=== PATIENT | male | born 1970 | race Caucasian/White ===

== ENCOUNTER 2017-03-25 23:28 | Inpatient (IN) ==
[2017-03-25] MEDS: *HR* HYDROmorphone (PF) 1 MG/ML SYRINGE IVP PRN ×3 (02:58→16:58)
[2017-03-25] MEDS: 0.9 % Sodium Chloride 1,000 ML IVC SCH ×2 (03:22→20:04)
[2017-03-25 06:06] LABS: Basophils % 0.2 %; Eosinophils # 0.1 K/mcL (0.0-0.6); Eosinophils % 0.6 %; Hematocrit 41.5 % (37.5-50.1); Hemoglobin 13.9 g/dL (12.9-16.9); Immature Granulocytes % 0.3 % (0-4); Mean Corpuscular HGB Conc 33.5 g/dL (31.6-35.5); Mean Corpuscular Hemoglobin 31.7 pg (28.0-33.3); Mean Corpuscular Volume 94.5 fL (83.0-100.0); Mean Platelet Volume 9.4 fL (9.4-12.4); Neutrophils # 11.2 K/mcL (1.6-8.9); Platelet Count 224 K/mcL (140-400); Red Blood Count 4.39 M/mcL (4.19-5.50); Red Cell Distribution Width 13.2 % (11.5-14.5); Segmented Neutrophils % 77.9 %
[2017-03-25 06:23] LABS: BUN/Creatinine Ratio 13 (6-26); Blood Urea Nitrogen 14 mg/dL (8-26); Calcium 8.5 mg/dL (8.6-10.8); Carbon Dioxide 25 mEq/L (19-29); Chloride 104 mEq/L (98-109); Glucose 101 mg/dL (70-99); Osmolality,Calculated 287 (280-300); Potassium 3.9 mEq/L (3.5-4.5); Sodium 138 mEq/L (136-145); eGFR For African Americans > 60 (> 60); eGFR For Non-African Americans > 60 (> 60)
--- NOTE | 2017-03-25 08:58 | General Surg History&Physical ---
<Florinda Hwang - Last Filed: 03/25/17 09:26> Date of Encounter: 03/25/17 Time of Encounter: 08:51 Assessment and Plan (1) Diverticulitis of large intestine with perforation Current Visit: Yes Status: Acute WBC 17.9 at [facility], 14.3 this morning. H/H 13.9, 41.5 ( decreased from 16.5/48.9 at [facility], will continue to monitor) CT of the abdomen and pelvis without contrast on 03/24/2017: Inflamed sigmoid colon consistent with acute diverticulitis. Small mesenteric gas collection consistent with microperforation. No abscess seen. Small bowel ileus. Patient was provided IVF, pain and nausea control. He was given Zosyn 4.5gm x1 at 2130 on 03/24/2017 Patient is passing gas, has positive bowel sounds. He does have involuntary guarding of the entire lower abdomen Plan: -Keep NPO today, will consider advancing diet to clear liquids tomorrow depending on abdominal exam -Continue IVF@ 75cc/hr -Continue zosyn q8hr -Serial abdominal exams, monitor VSS -Pain control -zofran for nausea -AM labs The assessment and plan as outlined above was discussed with the patient and/or family members who expressed understanding and agreement. All questions were answered. History of Present Illness Chief complaint: abdominal pain HPI: Mr. Johnson is a 46 year old male with no past medical or surgical history who was transferred to [facility] from [facility] with a diagnosis of diverticulitis with microperforation. The patient states that 2 nights ago he began to experience a "gut pain". He went to work yesterday, however the pain became worse throughout the day. He states that it was located in the right & left lower quadrants and was rated an 8/10. He states that it "feels like everything is in a knot and they are pulling on it. " Pain is worse with movement and relieved by lying down. It does not radiate anywhere. It is currently rated at a 5/10. He states that his last bowel movement was Friday, and was normal, however it was dark. The patient states that he did vomit yesterday. He also stated that he had a fever. He denies any history of diverticulosis or abdominal surgery. He denies any family history of a bleeding disorder, he states that his sister did have a DVT. He is a nonsmoker. He quit in 2008. He denies hematemesis, coffee-ground emesis, bloody stool, chills, chest pain, shortness of breath, headache, dizziness. Past Med Surg Social Fam HX - Past Medical History Medical history: no medical history Psychiatric history: no psych history - Past Surgical History Surgical History: no surgical history - Social History Smoking Status: Former smoker Smokeless Tobacco Status: Yes Alcohol use: rarely Drug use: none Occupational status: employed (sanitation truck driver) Current living situation: Home, With Family Activity Level: Independent ambulation Recent Out of Country Travel Within the Last 8 Weeks: No Exposure or Possible Exposure to Illness During Travel: No - Family History Father Age: 68 Race: Family Member Ethnicity: Non- Living Status: Still Living Hx Family Cancer: Yes (throat cancer) Hx Family Endocrine Disorder: Yes (DM) Mother Age: 63 Race: Family Member Ethnicity: Non- Living Status: Still Living Hx Family Endocrine Disorder: Yes (DM) Sister Race: Family Member Ethnicity: Non- Living Status: Still Living Hx Family Genitourinary Disorders: Yes (Kidney transplant) Hx Family Endocrine Disorder: Yes (DM) Hx Family Medical Disorders: Yes (DVT) Medications and Allergies Ranitidine HCl [Zantac 75] 75 mg PO DAILY PRN 03/25/17 [History] Allergies No Known Allergies Allergy (Verified 03/25/17 08:01) Review of Systems All systems PM: A 10-system review of systems was performed and is negative for pertinent findings except as documented above in the HPI. - EENT Nose, mouth and throat: no dizziness, no headache(s), no nasal congestion, no neck pain, no sore throat - Cardiovascular no chest pain, no diaphoresis - Respiratory no dyspnea - Gastrointestinal abdominal pain, melena, vomiting, no diarrhea, no hematemesis, no hematochezia, no loose stools, no nausea - Genitourinary no dysuria - Integumentary no unusual bruising - Neurological no dizziness, no headache(s) - Psychiatric no anxiety, no depression - Hematologic/Lymphatic no easy bleeding, no easy bruising General Surgery Exam Initial Vital Signs Temp Pulse Resp BP Pulse Ox 98.5 F 65 14 109/64 96 03/25/17 02:13 03/25/17 02:13 03/25/17 02:13 03/25/17 02:13 03/25/17 02:13 - General physical appearance well developed, well nourished, no distress, moderate pain - Eyes PERRL, normal ocular movement - ENT normal pinna, normal nares, normal mucosa, atraumatic, normocephalic - Neck no masses, trachea midline - Respiratory normal expansion, normal respiratory effort, clear to auscultation - Cardiovascular Cardiovascular exam: Present: RRR, no murmurs/rubs/gallops - Abdomen Abdomen general surgery: Present: bowel sounds present, soft, tender, guarding ( involuntary) Abdominal Tenderness: Present: RLQ, LLQ - Integumentary Integumentary general surgery: Present: warm and dry, no abnormal pigmentation - Neurologic Present: CN 2-12 grossly intact, normal coordination, normal sensation - Psychiatric Psychiatric general surgery: Present: appropriate, oriented to person, oriented to place, oriented to time, speech is normal, memory intact Results - Labs 03/25/17 05:16 03/25/17 05:16 Abnormal lab results WBC 14.3 K/mcL (4.3-11.1) H 03/25/17 05:16 Neutrophils # 11.2 K/mcL (1.6-8.9) H 03/25/17 05:16 Glucose 101 mg/dL (70-99) H 03/25/17 05:16 POC Glucose 101 (58-89) H 03/25/17 06:03 Calcium 8.5 mg/dL (8.6-10.8) L 03/25/17 05:16 Diabetes panel 03/25/17 Range/Units 05:16 Sodium 138 (136-145) mEq/L Potassium 3.9 (3.5-4.5) mEq/L Chloride 104 (98-109) mEq/L Carbon Dioxide 25 (19-29) mEq/L BUN 14 (8-26) mg/dL Creatinine 1.05 (0.72-1.25) mg/dL Glucose 101 H (70-99) mg/dL Calcium 8.5 L (8.6-10.8) mg/dL Calcium panel 03/25/17 Range/Units 05:16 Calcium 8.5 L (8.6-10.8) mg/dL Pituitary panel 03/25/17 Range/Units 05:16 Sodium 138 (136-145) mEq/L Potassium 3.9 (3.5-4.5) mEq/L Chloride 104 (98-109) mEq/L Carbon Dioxide 25 (19-29) mEq/L BUN 14 (8-26) mg/dL Creatinine 1.05 (0.72-1.25) mg/dL Glucose 101 H (70-99) mg/dL Calcium 8.5 L (8.6-10.8) mg/dL Adrenal panel 03/25/17 Range/Units 05:16 Sodium 138 (136-145) mEq/L Potassium 3.9 (3.5-4.5) mEq/L Chloride 104 (98-109) mEq/L Carbon Dioxide 25 (19-29) mEq/L BUN 14 (8-26) mg/dL Creatinine 1.05 (0.72-1.25) mg/dL Glucose 101 H (70-99) mg/dL Calcium 8.5 L (8.6-10.8) mg/dL All other labs normal. <Kishan Silveira - Last Filed: 03/25/17 12:18> Date of Encounter: 03/25/17 History of Present Illness HPI: Mr. Johnson is a 46 year old male Review of Systems All systems PM: A 10-system review of systems was performed and is negative for pertinent findings except as documented above in the HPI. General Surgery Exam Initial Vital Signs Temp Pulse Resp BP Pulse Ox 98.5 F 65 14 109/64 96 03/25/17 02:13 03/25/17 02:13 03/25/17 02:13 03/25/17 02:13 03/25/17 02:13 Results - Labs 03/25/17 05:16 03/25/17 05:16 Abnormal lab results WBC 14.3 K/mcL (4.3-11.1) H 03/25/17 05:16 Neutrophils # 11.2 K/mcL (1.6-8.9) H 03/25/17 05:16 Glucose 101 mg/dL (70-99) H 03/25/17 05:16 POC Glucose 98 (58-89) H 03/25/17 11:13 Calcium 8.5 mg/dL (8.6-10.8) L 03/25/17 05:16 Diabetes panel 03/25/17 Range/Units 05:16 Sodium 138 (136-145) mEq/L Potassium 3.9 (3.5-4.5) mEq/L Chloride 104 (98-109) mEq/L Carbon Dioxide 25 (19-29) mEq/L BUN 14 (8-26) mg/dL Creatinine 1.05 (0.72-1.25) mg/dL Glucose 101 H (70-99) mg/dL Calcium 8.5 L (8.6-10.8) mg/dL Calcium panel 03/25/17 Range/Units 05:16 Calcium 8.5 L (8.6-10.8) mg/dL Pituitary panel 03/25/17 Range/Units 05:16 Sodium 138 (136-145) mEq/L Potassium 3.9 (3.5-4.5) mEq/L Chloride 104 (98-109) mEq/L Carbon Dioxide 25 (19-29) mEq/L BUN 14 (8-26) mg/dL Creatinine 1.05 (0.72-1.25) mg/dL Glucose 101 H (70-99) mg/dL Calcium 8.5 L (8.6-10.8) mg/dL Adrenal panel 03/25/17 Range/Units 05:16 Sodium 138 (136-145) mEq/L Potassium 3.9 (3.5-4.5) mEq/L Chloride 104 (98-109) mEq/L Carbon Dioxide 25 (19-29) mEq/L BUN 14 (8-26) mg/dL Creatinine 1.05 (0.72-1.25) mg/dL Glucose 101 H (70-99) mg/dL Calcium 8.5 L (8.6-10.8) mg/dL All other labs normal. - Attending Attestation I examined this patient and my medical decision-making was reviewed with the MANAGER SUPPORT SERVICES/PA/Advanced Practice Nurse/Resident Physician. I agree with the documented findings, disposition and treatment plan as described except to the extent set forth below. The patient seen and evaluated on morning rounds. His physical examination demonstrates involuntary guarding. He has persistent leukocytosis. He antibiotic treatment of his perforated diverticulitis without abscess. Kishan Silveira MD FACS
[2017-03-25] MEDS: Piperacillin/Tazobactam 3.375 GM in D5% in Water (Mini-Bag+) 100 ML IVPB SCH ×2 (09:23→16:55)
[2017-03-25] MEDS: Pantoprazole 40 MG VIAL IVP SCH (09:37)
[~2017-03-25 23:28] MED LIST: Naloxone 0.4 MG/ML INJ IVP PRN; Ondansetron 4 MG/2 ML VIAL IVP PRN
[2017-03-26] MEDS: Piperacillin/Tazobactam 3.375 GM in D5% in Water (Mini-Bag+) 100 ML IVPB SCH ×4 (00:14→23:15)
[2017-03-26 05:57] LABS: Basophils % 0.3 %; Eosinophils # 0.1 K/mcL (0.0-0.6); Eosinophils % 1.2 %; Hematocrit 40.7 % (37.5-50.1); Hemoglobin 13.5 g/dL (12.9-16.9); Immature Granulocytes % 0.3 % (0-4); Lymphocytes # 2.1 K/mcL (0.6-4.6); Lymphocytes % 19.8 %; Mean Corpuscular HGB Conc 33.2 g/dL (31.6-35.5); Mean Corpuscular Hemoglobin 31.9 pg (28.0-33.3); Mean Corpuscular Volume 96.2 fL (83.0-100.0); Mean Platelet Volume 9.7 fL (9.4-12.4); Monocytes # 0.8 K/mcL (0.0-1.3); Monocytes % 7.1 %; Neutrophils # 7.6 K/mcL (1.6-8.9); Platelet Count 230 K/mcL (140-400); Red Blood Count 4.23 M/mcL (4.19-5.50); Red Cell Distribution Width 12.8 % (11.5-14.5); Segmented Neutrophils % 71.3 %
[2017-03-26 06:16] LABS: BUN/Creatinine Ratio 15 (6-26); Blood Urea Nitrogen 16 mg/dL (8-26); Calcium 8.5 mg/dL (8.6-10.8); Carbon Dioxide 27 mEq/L (19-29); Chloride 103 mEq/L (98-109); Glucose 82 mg/dL (70-99); Osmolality,Calculated 284 (280-300); Potassium 4.2 mEq/L (3.5-4.5); Sodium 137 mEq/L (136-145); eGFR For African Americans > 60 (> 60); eGFR For Non-African Americans > 60 (> 60)
--- NOTE | 2017-03-26 08:43 | General Surgery Progress Note ---
Date of Encounter: 03/26/17 Time of Encounter: 08:42 - Assessment and Plan (1) Diverticulitis of large intestine with perforation Current Visit: Yes Status: Acute WBC 10.7 CBC, BMP WNL VSS Bowel sounds present, abdomen soft and less tender, less distended compared to yesterday Patient had a BM this morning that he states was black, no blood noted We will advance the patient's diet to clear liquids and continue IV antibiotics today. If he is tolerating clear liquids today we can switch him to by mouth antibiotics tomorrow and consider discharge. Plan: -Advance diet to clear liquids -Continue IV antibiotics today, if tolerating clears will switch to PO antibiotics tomorrow Subjective Patient reports: feels better, pain is less, bowel movement, afebrile Narrative: The patient was seen and examined. He states that he is feeling better today. He was able to have a bowel movement today that he states was black, not bloody. Objective Vital Signs - Last 8 Hours Temp Pulse Resp BP Pulse Ox 03/26/17 07:25 98.6 F 66 16 120/71 95 03/26/17 03:53 98.5 F 76 15 124/80 96 Intake and Output 03/25/17 03/26/17 03/26/17 23:59 07:59 15:59 Intake Total 1100 / 1100 100 / 100 Output Total 450 / 450 600 / 600 Balance 650 / 650 -500 / -500 Intake: IV Fluids 1100 / 1100 100 / 100 0.9 % Sodium Chloride 1, 1000 / 1000 000 ML @ 75 mls/hr IVC . [id number] ASAF Rx#: [id number] Zosyn 3.375 GM In 100 / 100 100 / 100 Dextrose 5% (Minibag+) 100 ML 100 ML @ 25 mls/hr IVPB Q8HR ASAF Rx#: [id number] Oral 0 / 0 0 / 0 Output: Urine 450 / 450 600 / 600 Other: Meal NPO Weight 99.4 kg Blood Glucose* 75 82 Patient Weight 03/26/17 23:59 Weight 99.4 kg - General physical appearance well developed, well nourished, no distress, no pain - Eyes PERRL, normal ocular movement - ENT normal pinna, normal nares, normal mucosa, atraumatic, normocephalic - Neck Neck exam: trachea midline - Respiratory normal expansion, normal respiratory effort, clear to auscultation - Cardiovascular Cardiovascular exam: Present: RRR, no murmurs/rubs/gallops - Abdomen Abdomen: Present: bowel sounds present, soft, tender (Mild) Abdominal Tenderness: RLQ, LLQ - Integumentary no rash, no growths, no abnormal pigmentation - Neurologic normal coordination, normal sensation - Musculoskeletal normal gait, normal posture - Psychiatric oriented to time, oriented to person, oriented to place, speech is normal, memory intact - Labs 03/26/17 04:33 03/26/17 04:33 Diabetes panel 03/26/17 Range/Units 04:33 Sodium 137 (136-145) mEq/L Potassium 4.2 (3.5-4.5) mEq/L Chloride 103 (98-109) mEq/L Carbon Dioxide 27 (19-29) mEq/L BUN 16 (8-26) mg/dL Creatinine 1.10 (0.72-1.25) mg/dL Glucose 82 (70-99) mg/dL Calcium 8.5 L (8.6-10.8) mg/dL Calcium panel 03/26/17 Range/Units 04:33 Calcium 8.5 L (8.6-10.8) mg/dL Pituitary panel 03/26/17 Range/Units 04:33 Sodium 137 (136-145) mEq/L Potassium 4.2 (3.5-4.5) mEq/L Chloride 103 (98-109) mEq/L Carbon Dioxide 27 (19-29) mEq/L BUN 16 (8-26) mg/dL Creatinine 1.10 (0.72-1.25) mg/dL Glucose 82 (70-99) mg/dL Calcium 8.5 L (8.6-10.8) mg/dL Adrenal panel 03/26/17 Range/Units 04:33 Sodium 137 (136-145) mEq/L Potassium 4.2 (3.5-4.5) mEq/L Chloride 103 (98-109) mEq/L Carbon Dioxide 27 (19-29) mEq/L BUN 16 (8-26) mg/dL Creatinine 1.10 (0.72-1.25) mg/dL Glucose 82 (70-99) mg/dL Calcium 8.5 L (8.6-10.8) mg/dL Consult Discharge Plan - Plan Referrals: Merle Bustamante, PIPER INSTALLER [Advanced Practice Nurse] - 04/03/17 2:00 pm (Please bring your photo ID, insurance card, any medications you are on and your new patient packet you will receive in the mail. If you need to cancel, please give a 24 hour notice. Thank you) - Attending Attestation I examined this patient and my medical decision-making was reviewed with the AMBULETTE DRIVER/PA/Advanced Practice Nurse/Resident Physician. I agree with the documented findings, disposition and treatment plan as described except to the extent set forth below. The patient is seen and evaluated on morning rounds. His abdominal examination is much improved. His white blood cell count is normal. We will continue IV antibiotics today. He will start on clear liquids today. Kishan Silveira MD FACS
[2017-03-26] MEDS: 0.9 % Sodium Chloride 1,000 ML IVC SCH ×2 (09:46→23:19)
[2017-03-26] MEDS: Pantoprazole 40 MG VIAL IVP SCH (09:48)
[2017-03-26] MEDS: *HR* HYDROmorphone (PF) 1 MG/ML SYRINGE IVP PRN (23:18)
[2017-03-27 06:38] LABS: Basophils % 0.4 %; Eosinophils # 0.2 K/mcL (0.0-0.6); Eosinophils % 3.4 %; Hematocrit 40.3 % (37.5-50.1); Hemoglobin 13.5 g/dL (12.9-16.9); Immature Granulocytes % 0.4 % (0-4); Lymphocytes # 2.4 K/mcL (0.6-4.6); Lymphocytes % 33.1 %; Mean Corpuscular HGB Conc 33.5 g/dL (31.6-35.5); Mean Corpuscular Hemoglobin 31.8 pg (28.0-33.3); Mean Corpuscular Volume 94.8 fL (83.0-100.0); Mean Platelet Volume 9.4 fL (9.4-12.4); Monocytes # 0.6 K/mcL (0.0-1.3); Monocytes % 8.7 %; Neutrophils # 3.8 K/mcL (1.6-8.9); Platelet Count 244 K/mcL (140-400); Red Blood Count 4.25 M/mcL (4.19-5.50); Red Cell Distribution Width 12.7 % (11.5-14.5)
[2017-03-27 06:56] LABS: BUN/Creatinine Ratio 9 (6-26); Blood Urea Nitrogen 10 mg/dL (8-26); Calcium 8.4 mg/dL (8.6-10.8); Carbon Dioxide 28 mEq/L (19-29); Chloride 107 mEq/L (98-109); Glucose 95 mg/dL (70-99); Osmolality,Calculated 289 (280-300); Potassium 4.2 mEq/L (3.5-4.5); Sodium 140 mEq/L (136-145); eGFR For African Americans > 60 (> 60); eGFR For Non-African Americans > 60 (> 60)
--- NOTE | 2017-03-27 07:03 | General Surgery Progress Note ---
Date of Encounter: 03/27/17 Time of Encounter: 07:00 - Assessment and Plan (1) Diverticulitis of large intestine with perforation Current Visit: Yes Status: Acute VSS Bowel sounds present, abdomen soft and tender to right and left lower quadrants , involuntary guarding LLQ Patient states that his pain is not well-controlled and has increased compared to yesterday morning. He does not feel that his pain is controlled enough to be discharged today. Patient did tolerate clear liquids With increased pain and localization of involuntary guarding to LLQ, there is concern for possible development of abscess. Will re-CT his abdomen today to evaluate and place drain if necessary. Plan: -NPO -CT abd/pelvis with Oral contrast, no IV -Continue IV Abx -Pain control Subjective Patient reports: still having pain, tolerating liquids well, bowel movement, afebrile Narrative: The patient was seen and examined. He notes that he is having increased pain compared to yesterday morning. He states that the pain began increasing history evening. He states that he is tolerating clear liquids without any difficulty. He states that he does not want to go home when his pain is poorly controlled. Objective Vital Signs - Last 8 Hours Temp Pulse Resp BP Pulse Ox 03/27/17 03:29 98.4 F 55 18 123/80 95 03/26/17 23:06 98.7 F 60 18 110/67 96 Intake and Output 03/26/17 03/26/17 03/27/17 15:59 23:59 07:59 Intake Total 2300 / 2300 1820 / 1820 100 / 100 Output Total 150 / 150 850 / 850 375 / 375 Balance 2150 / 2150 970 / 970 -275 / -275 Intake: IV Fluids 1100 / 1100 1100 / 1100 100 / 100 0.9 % Sodium Chloride 1, 1000 / 1000 1000 / 1000 000 ML @ 75 mls/hr IVC . [id number] ASAF Rx#: [id number] Zosyn 3.375 GM In 100 / 100 100 / 100 100 / 100 Dextrose 5% (Minibag+) 100 ML 100 ML @ 25 mls/hr IVPB Q8HR ASAF Rx#: [id number] Oral 1200 / 1200 720 / 720 Output: Urine 150 / 150 525 / 525 375 / 375 Catheter 325 / 325 Other: Meal Lunch Dinner # Voids 1 Weight 98.03 kg Patient Weight 03/27/17 23:59 Weight 98.03 kg - General physical appearance well developed, well nourished, no distress, moderate pain - Eyes PERRL, normal ocular movement - ENT normal pinna, normal nares, normal mucosa, atraumatic, normocephalic - Neck Neck exam: trachea midline - Respiratory normal expansion, normal respiratory effort, clear to auscultation - Cardiovascular Cardiovascular exam: Present: RRR, no murmurs/rubs/gallops - Abdomen Abdomen: Present: bowel sounds present, soft, tender, guarding (involuntary LLQ) Abdominal Tenderness: RLQ, LLQ - Integumentary no rash, no growths, no abnormal pigmentation - Neurologic normal coordination, normal sensation - Psychiatric oriented to time, oriented to person, oriented to place, speech is normal, memory intact - Labs 03/27/17 05:41 03/27/17 05:41 Consult Discharge Plan - Plan Referrals: Merle Bustamante QUALITY ASSURANCE ASSISTANT [Advanced Practice Nurse] - 04/03/17 2:00 pm (Please bring your photo ID, insurance card, any medications you are on and your new patient packet you will receive in the mail. If you need to cancel, please give a 24 hour notice. Thank you) - Attending Attestation I examined this patient and my medical decision-making was reviewed with the FIELD ENUMERATOR/PA/Advanced Practice Nurse/Resident Physician. I agree with the documented findings, disposition and treatment plan as described except to the extent set forth below. The patient was seen and evaluated on morning rounds. He is having more abdominal pain. His white blood cell count is normal. I am concerned that he is formed an abscess. We will order CAT scan of the abdomen today. If the CAT scan is negative we will advance his diet change him to oral antibiotics. If the CAT scan is positive for abscess we will arrange CT drainage Kishan Silveira MD FACS
[2017-03-27] MEDS: Pantoprazole 40 MG VIAL IVP SCH (07:32)
[2017-03-27] MEDS: Piperacillin/Tazobactam 3.375 GM in D5% in Water (Mini-Bag+) 100 ML IVPB SCH (08:25)
[2017-03-27] MEDS: metroNIDAZOLE 500 MG TABLET PO SCH ×2 (15:19→20:24)
[2017-03-27] MEDS: 0.9 % Sodium Chloride 1,000 ML IVC SCH (15:31)
[2017-03-28 07:39] VITALS: BP 114/80
[2017-03-28] MEDS: metroNIDAZOLE 500 MG TABLET PO SCH (07:56)
[2017-03-28] MEDS: Pantoprazole 40 MG VIAL IVP SCH (07:56)
--- NOTE | 2017-03-28 09:25 | Discharge Summary ---
<Florinda Hwang - Last Filed: 03/28/17 09:23> Date of Encounter: 03/28/17 Time of Encounter: 07:00 - Discharge Diagnosis (1) Diverticulitis of large intestine with perforation Priority: Primary Status: Acute - Discharge Medications Prescriptions: Ciprofloxacin [Cipro] 500 mg PO BID #20 tablet metroNIDAZOLE [Flagyl] 500 mg PO TID #30 tablet Home Medications: Ranitidine HCl [Zantac 75] 75 mg PO DAILY PRN 03/25/17 [History] Ciprofloxacin [Cipro] 500 mg PO BID #20 tablet 03/28/17 [Rx] metroNIDAZOLE [Flagyl] 500 mg PO TID #30 tablet 03/28/17 [Rx] Allergies/Adverse Reactions: Allergies No Known Allergies Allergy (Verified 03/25/17 08:01) General Surgery Exam Initial Vital Signs Temp Pulse Resp BP Pulse Ox 98.5 F 65 14 109/64 96 03/25/17 02:13 03/25/17 02:13 03/25/17 02:13 03/25/17 02:13 03/25/17 02:13 - General physical appearance well developed, well nourished, no distress - Eyes PERRL, normal ocular movement - ENT normal pinna, normal nares, normal mucosa, no hearing loss, no congestion, atraumatic, normocephalic - Neck no masses, trachea midline, no lymphadectomy - Respiratory normal expansion, normal respiratory effort, clear to auscultation - Cardiovascular Cardiovascular exam: Present: RRR, no murmurs/rubs/gallops - Abdomen Abdomen general surgery: Present: bowel sounds present, soft, non tender - Integumentary Integumentary general surgery: Present: warm and dry, no abnormal pigmentation - Neurologic Present: CN 2-12 grossly intact, normal coordination, normal sensation - Musculoskeletal Present: normal gait, normal posture - Psychiatric Psychiatric general surgery: Present: appropriate, oriented to person, oriented to place, oriented to time, speech is normal, memory intact Date of admission: 03/26/17 07:52 Primary care physician: PCP NO Discharging clinician: Kishan Silveira Anticipated date of discharge: 03/28/17 - Patient Status Disposition: Home, Self-Care Condition: Good Functional capacity at discharge: independent ambulation Overall status at discharge: patient is progressing back to baseline - Discharge Instructions Instructions: Diverticulitis (DC) Follow Up With: Kishan Silveira MD [Partnered Physician] - 04/15/17 10:10 am (2 weeks) Merle Bustamante CNP [Advanced Practice Nurse] - 04/03/17 2:00 pm (Please bring your photo ID, insurance card, any medications you are on and your new patient packet you will receive in the mail. If you need to cancel, please give a 24 hour notice. Thank you) Additional Instructions: Resume your regular diet as tolerated. You may return to your normal activities as tolerated. Follow up with your primary care provider in 5-7 days. Follow up with Dr. Silveira in 2 weeks. Go to the ER if you have: * Blood in your stools * Fever above 100.4F (38C) that does not go away * Nausea, vomiting, or chills * Sudden belly or back pain, or pain that gets worse or is very severe - Diet and Activity Activity: resume usual activities as tolerated Diet: advance to your usual diet - Hospital Course Hospital course: Mr. Johnson is a 46 year old male with no past medical or surgical history who was transferred to [facility] from [facility] with a diagnosis of diverticulitis with microperforation 03/25/17. The patient states that 2 nights prior he began to experience a "gut pain". He went to work 03/24, however the pain became worse throughout the day. The pain was located in the right & left lower quadrants and was rated an 8/10. He states that it "feels like everything is in a knot and they are pulling on it." Pain was worse with movement and relieved by lying down without radiation. He states that his last bowel movement was 5/14, and was normal, however it was dark. CT of the abdomen and pelvis without contrast on 03/24/2017: Inflamed sigmoid colon consistent with acute diverticulitis. Small mesenteric gas collection consistent with microperforation, no abscess seen, small bowel ileus. The patient was kept NPO, provided with IV hydration and IV zosyn. His white count decreased the following day and he was advanced to a clear liquid diet. Day 3 of admission he had increased pain with involuntary guarding on exam in the LLQ. A repeat CT of the abdomen and pelvis with oral contrast was performed to ensure that there was no developing abscess. No abscess was seen. The patient's pain improved and he was able to tolerate full liquids after that. The patient will be discharged with 10 days of flagyl and cipro in stable condition. Discharge instructions were provided, along with follow up in 2 weeks. The patient states understanding of and agreement with the plan. - Time Spent with Patient Total time spent providing and/or coordinating discharge services: Less than 30 minutes Labs on day of discharge: Labs from last 24 hours 03/27/17 11:49 POC Glucose 89 - Impressions ITS Impressions Abdomen/Pelvis CT 03/27/17 11:30 IMPRESSION: Acute diverticulitis involving the sigmoid colon with associated small micro perforation. Small amount of adjacent free air is identified without associated abscess. The results of the examination were discussed with Dr. Cardenas on 03/27/2017 at 12:40 p.m. D/ /27/2017 12:45:43 Vini Bowser MD / sierra Interpreting Provider: Vini Bowser MD <Kishan Silveira T - Last Filed: 03/28/17 16:58> Date of Encounter: 03/28/17 - Discharge Diagnosis (1) Diverticulitis of large intestine with perforation Status: Acute General Surgery Exam Initial Vital Signs Temp Pulse Resp BP Pulse Ox 98.5 F 65 14 109/64 96 03/25/17 02:13 03/25/17 02:13 03/25/17 02:13 03/25/17 02:13 03/25/17 02:13 Date of admission: 03/26/17 07:52 Primary care physician: PCP NO - Hospital Course Hospital course: Mr. Johnson is a 46 year old male - Time Spent with Patient Total time spent providing and/or coordinating discharge services: - Impressions ITS Impressions Abdomen/Pelvis CT 03/27/17 11:30 IMPRESSION: Acute diverticulitis involving the sigmoid colon with associated small micro perforation. Small amount of adjacent free air is identified without associated abscess. The results of the examination were discussed with Dr. Cardenas on 03/27/2017 at 12:40 p.m. D/ /27/2017 12:45:43 Vini Bowser MD / sierra Interpreting Provider: Vini Bowser MD - Attending Attestation I examined this patient and my medical decision-making was reviewed with the BREAD STACKER/PA/Advanced Practice Nurse/Resident Physician. I agree with the documented findings, disposition and treatment plan as described except to the extent set forth below. The patient has very little pain today. He is doing well. He is ready for discharge on oral antibiotic. Kishan Silveira MD FACS
== END 2017-03-28 10:23 | disposition home or self-care (01) | DRG 392 ==
LOC: 3ANU
PROVIDERS: ADMIT Surgery; ATTEND Surgery